=== PATIENT | female | born 1995 | race Caucasian/White ===

== ENCOUNTER 2024-01-19 13:55 | Emergency (ER) | payer BC ==
[2024-01-19] MEDS ORDERED: Bupivacaine 0.25% 10 ML VIAL ONE (17:11)
[2024-01-19] MEDS ORDERED: Rabies Immune Globulin/PF 300 UNITS/ML VIAL ONE (17:44)
[2024-01-19] MEDS ORDERED: Rabies Vaccine Human 2.5 UNITS VIAL ONE (17:44)
== END 2024-01-19 18:47 | disposition home or self-care (01) ==
LOC: ERS 13:55
DX: S61.452A Open bite of left hand, initial encounter (principal); S61.253A Open bite of left middle finger without damage to nail, initial encounter; Z23 Encounter for immunization; W54.0XXA Bitten by dog, initial encounter
CPT/HCPCS: 64450; 90375; 90471; 90675; 96372; J0665